=== PATIENT | female | born 1965 | race Caucasian/White ===

== ENCOUNTER 2025-02-15 14:27 | Outpatient (REF) | payer BC, SELFPAY | END 2025-02-15 14:28 | disposition home or self-care (01) | LOC: HO.MAMMO 14:27 | PROVIDERS: Visit Provider Physician Assistant | DX: Z12.31 Encounter for screening mammogram for malignant neoplasm of breast (principal) | CPT/HCPCS: 77063; 77067 ==

== ENCOUNTER → 2025-02-15 14:42 | Outpatient (BNV) | payer BC, SELFPAY | PROVIDERS: Visit Provider Internal Medicine | DX: Z12.31 Encounter for screening mammogram for malignant neoplasm of breast (principal) | CPT/HCPCS: 77063; 77067 ==